=== PATIENT | female | born 1945 | race Hispanic/Latino ===

== ENCOUNTER → 2018-05-09 | Outpatient (CLI) | payer OTHER ==
--- NOTE | 2018-05-09 15:01 | RAD ---
EXAM DESCRIPTION: Knee,Left Complete CLINICAL HISTORY: PN IN UNSPECIFIED [id number] COMPARISON: None. TECHNIQUE: 3 views left FINDINGS: A left total knee arthroplasty is observed. Marked loss of medial joint space is observed. Sclerosis of the articular surfaces are observed. Medial femoral and tibial osteophyte formation is observed. Mild loss of lateral joint space is observed. 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 No joint effusion is seen. IMPRESSION: Degenerative changes are observed most pronounced the patellofemoral joint and medial joint compartments. Electronically signed by: Milind Martínez MD 05/09/2018 3:00 PM [facility]
--- NOTE | 2018-05-09 15:02 | RAD ---
EXAM DESCRIPTION: Knee,Right Complete CLINICAL HISTORY: PN IN UNSPECIFIED [id number] COMPARISON: None. TECHNIQUE: 3 views right. FINDINGS: Marked loss of medial joint space is observed. Sclerosis of the articular surfaces are observed. Medial tibial osteophyte formation is observed. Moderate patellofemoral joint arthritis is seen. IMPRESSION: Degenerative changes are observed most pronounced in the medial joint compartment and patellofemoral joints. Electronically signed by: Milind Martínez MD 05/09/2018 3:01 PM [facility]
== END ==
LOC: RAD 11:58
PROVIDERS: ATTEND Nurse Practitioner Family
DX: M25.569 Pain in unspecified knee (principal)

== ENCOUNTER 2019-06-15 09:21 | Emergency (ER) | payer MEDICARE ==
[2019-06-15] MEDS ORDERED: SODIUM CHLORIDE 0.9% (FLUSH) 10 ML SYG IV PRN (09:39)
[2019-06-15] MEDS ORDERED: SODIUM CHLORIDE 0.9% 1000ML 1,000 ML IVS ONE (09:40)
--- NOTE | 2019-06-15 09:41 | ED.PDOC ---
History of Present Illness - General Chief Complaint: GI Problem Stated Complaint: Intermittent N/V/D, exacerbated with food Time Seen by Provider: 06/15/19 09:39 Source: patient - History of Present Illness Initial Comments: 73 yo female with PMH of HTN, GERD who is bib daughter from home for cc of intermittent n/v/d. Ongoing now for about 2 weeks. First began after she was feeling constipated and ate some prunes to try to relieve it. Reports since then having approx 1-4 episodes of watery diarrhea per day and also having intermittent nausea with light/yellow colored emesis which occurs after eating anything "heavy." Also reports some burning sensation in her throat and reports crampy generalized abdominal pain only with the vomiting and diarrhea and none at rest. States sx's have improved the past few days while she was on a "light" diet but worsened again yesterday after eating some pancakes with a friend. Reports hx of GERD and was taking Zantac long-term until the past couple months when it was pulled from the shelves. Has not tried anything at home for relief. Currently denies any abd pain, fevers, chills, chest pain, dyspnea, body aches, urinary sx's. Does reports feeling generally weak past couple weeks since this has gone on. Denies any dark/black stools. Reports hx of cholecystectomy and many years ago but no other abdominal surgeries. Does not have a PCP in [facility], occasionally will see Dr. West in [place]. Allergies/Adverse Reactions: Allergies Acetaminophen [From Vicodin] Allergy (Verified 06/15/19 09:41) Hydrocodone [From Vicodin] Allergy (Verified 06/15/19 09:41) Propoxyphene [From Darvocet-N] Allergy (Verified 06/15/19 09:41) Home Medications: Ambulatory Orders Atenolol [Tenormin] 50 mg PO DAILY 06/15/19 Review of Systems - Review of Systems Review of Systems: 06/15/19 09:58 as per HPI All other Systems: Reviewed and Negative Past Medical History (General) - Patient Medical History Hx Stroke: No Hx of COPD: No Hx Congestive Heart Failure: No Hx Hypertension: Yes Hx Diabetes: No Hx Cancer: No Surgical History: cholecystectomy - Vaccination History Hx Tetanus, Diphtheria Vaccination: No Hx Influenza Vaccination: No Hx Pneumococcal Vaccination: No Immunizations Up to Date: No - Social History Hx Tobacco Use: Yes Hx Alcohol Use: No Hx Substance Use: No Hx Substance Use Treatment: No Hx Depression: No - Female History Patient is a Female of Child Bearing Age (10 -59 yrs old): No Patient : No Family Medical History - Family History Mother Family History: No Known Physical Exam - Physical Exam General Appearance: Alert, Comfortable, No apparent distress Eye Exam: bilateral normal Ears, Nose, Throat: hearing grossly normal, normal ENT inspection Neck: non-tender, full range of motion, supple, normal inspection Respiratory: chest non-tender, lungs clear, normal breath sounds, no respiratory distress Cardiovascular/Chest: normal peripheral pulses, regular rate, rhythm, no edema, no murmur Gastrointestinal/Abdominal: soft, no organomegaly, other - minimal LLQ & suprapubic ttp, bowel sounds diminished throughout Back Exam: normal inspection, no CVA tenderness Extremity: normal range of motion, non-tender, normal inspection, no pedal edema, no calf tenderness, normal capillary refill Neurologic: proposal director II-XII nml as tested, no motor/sensory deficits, alert, normal mood/affect, oriented x 3 Skin Exam: normal color, warm/dry Progress - Progress Progress: 06/15/19 10:00 N/V/D -ongoing x2 weeks, waxing/waning, worse postprandial, hx of GERD and off antacids -suspect 2/2 GERD/acute gastritis most likely, consider also gastroenteritis vs constipation vs diverticulitis vs UTI vs acute pancreatitis vs cholangitis vs gastroparesis vs other -obtain labwork, place PIV, 1 L NS bolus, Zofran & Protonix 06/15/19 10:51 -Labs surprisingly reveal WBC 29,300 with 82% segs and 3% bands, lactate is 1.0. K is 2.8 - will given KCl 60 mEq PO. Given marked leukocytosis, consider infectious vs sepsis without severe features vs ?occult malignancy vs other. Pt has never had a colonoscopy. Daughter reports she has lost maybe 10-15 lbs past couple months. Obtaining CT A/P with IV contrast to search for occult infectious source vs possible malignancy vs other. Also will check lactate and collect blood cx's. Pt remains stable, vitals wnl, reports feeling a little better with ED trx. 06/15/19 12:37 -CT A/P reveals long segmental inflammatory changes involving the sigmoid colon and rectum as well as a 3x3 cm area of perirectal gas and fluid concerning for possible contained perforation and/or abscess. No other acute findings noted. Suspect this is the source of her infection and leukocytosis. Discussed with patient and daughter and recommend transfer to higher LOC for surgical and/or GI consultation. Will initiate broad spectrum IV Abx with Zosyn. Pt remains stable, vitals remain wnl. -Spoke with Dr. Dejesus, hospitalist at [facility], regarding patient and concerning CT A/P findings. He is going to speak with the on-call surgeon there and call us back to notify if patient is accepted for transfer. 06/15/19 12:54 -Pt has been accepted for transfer by Dr. Dejesus to [facility]. Stable to go via ground EMS. Markel Rivas MD Billing #[id number] - Results/Orders Results/Orders: 06/15/19 09:39 Sodium Chloride 0.9% (Flush) [Saline Flush Syringe] 10 ml IV PRN PRN 06/15/19 10:42 Hold Metformin x 48Hrs [id number] 06/15/19 11:28 BLOOD CULTURE Stat 06/15/19 12:24 Piperacillin/Tazobactam [Zosyn] 4.5 gm Sodium Chloride 0.9% 100Ml [NS (NACL 0.9%) 100ml] 100 ml IVPB ONCE Laboratory Results - last 24 hr 06/15/19 06/15/19 06/15/19 10:00 10:00 11:07 WBC 29.6 H* RBC 4.04 L Hgb 11.7 L Hct 35.5 L MCV 88.0 MCH 28.9 MCHC 32.8 L RDW 13.3 Plt Count 441 H MPV 9.5 Absolute Neuts (auto) Not Reportable Absolute Lymphs (auto) Not Reportable Absolute Monos (auto) Not Reportable Absolute Eos (auto) Not Reportable Neutrophils % Not Reportable Neutrophils % (Manual) 83.0 H Lymphocytes % Not Reportable Lymphocytes % (Manual) 13.0 Monocytes % Not Reportable Monocytes % (Manual) 1.0 Eosinophils % Not Reportable Basophils % Not Reportable Band Neutrophils 3.0 H Sodium 136 Potassium 2.8 L Chloride 97 L Carbon Dioxide 26 Anion Gap 15.8 BUN 8 Creatinine 0.51 L BUN/Creatinine Ratio 15.7 Random Glucose 136 H Serum Osmolality 272.4 L Lactic Acid 1.0 Calcium 8.0 L Total Bilirubin 0.7 Direct Bilirubin 0.2 Indirect Bilirubin 0.5 AST 21 ALT 11 Alkaline Phosphatase 91 Serum Total Protein 6.9 Albumin 2.8 L Lipase 21 L Urine Color Urine Appearance Urine pH Ur Specific [place] Urine Protein Urine Glucose (UA) Urine Ketones Urine Blood Urine Nitrite Urine Bilirubin Urine Urobilinogen Ur Leukocyte Esterase Urine RBC Urine WBC Ur Epithelial Cells Urine Bacteria 06/15/19 11:22 WBC RBC Hgb Hct MCV MCH MCHC RDW Plt Count MPV Absolute Neuts (auto) Absolute Lymphs (auto) Absolute Monos (auto) Absolute Eos (auto) Neutrophils % Neutrophils % (Manual) Lymphocytes % Lymphocytes % (Manual) Monocytes % Monocytes % (Manual) Eosinophils % Basophils % Band Neutrophils Sodium Potassium Chloride Carbon Dioxide Anion Gap BUN Creatinine BUN/Creatinine Ratio Random Glucose Serum Osmolality Lactic Acid Calcium Total Bilirubin Direct Bilirubin Indirect Bilirubin AST ALT Alkaline Phosphatase Serum Total Protein Albumin Lipase Urine Color Yellow Urine Appearance Clear Urine pH 7.0 Ur Specific [place] <= 1.005 Urine Protein Negative Urine Glucose (UA) Negative Urine Ketones Negative Urine Blood Negative Urine Nitrite Negative Urine Bilirubin Negative Urine Urobilinogen 0.2 Ur Leukocyte Esterase Negative Urine RBC 0 Urine WBC 0 Ur Epithelial Cells 0-1 Urine Bacteria 0 Departure - Departure Clinical Impression: Proctocolitis with complication Time of Disposition: 12:55 Disposition: Transfer to Hospital Condition: Fair Departure Forms: ED Discharge - Pt. Copy, Patient Portal Self Enrollment Referrals: CINDY WEST [Primary Care Provider] - 1-2 Weeks Home Medications: Ambulatory Orders Atenolol [Tenormin] 50 mg PO DAILY 06/15/19 Transfer to Outside Facility - Transfer Information Decision to Transfer Date: 06/15/19 Decision to Transfer Time: 12:56 Reason for Transfer: specialized care not available - surgery, gastroenterology, possibly interventional radiology, possible ICU Accepting Provider:: Dr. Dejesus Accepting Facility: [facility]
[2019-06-15] MEDS ORDERED: PANTOPRAZOLE SODIUM IV 40 MG VIAL IV ONE (09:51)
[2019-06-15] MEDS ORDERED: ONDANSETRON INJ 4 MG/2 ML VIAL IV ONE (09:52)
--- NOTE | 2019-06-15 10:26 | RAD ---
EXAM DESCRIPTION: Abdomen 1 View CLINICAL HISTORY: nausea, vomiting, diarrhea, hx of constipation COMPARISON: None. TECHNIQUE: AP supine abdomen FINDINGS: Surgical clips are seen in the right upper quadrant. The bowel gas pattern is unremarkable. No pathologic calcifications are observed. Phleboliths are seen in the pelvis. No organomegaly is detected. IMPRESSION: Unremarkable abdomen. Electronically signed by: Milind Martínez MD 06/15/2019 10:24 AM [facility]
[2019-06-15] MEDS ORDERED: POTASSIUM CHLORIDE 20 MEQ TAB PO ONE (10:41)
--- NOTE | 2019-06-15 12:16 | CT ---
EXAM DESCRIPTION: Abdomen/Pelvis w/Contrast CLINICAL HISTORY: 73 years Female, n/v/d, markedly elevated WBC, LLQ tenderness TECHNIQUE: This exam was performed according to our departmental dose-optimization program, which includes automated exposure control, adjustment of the mA and/or kV according to patient size and/or use of iterative reconstruction technique. COMPARISON: None at time of initial interpretation. FINDINGS: Bibasilar volume loss. Hepatic steatosis. No suspicious hepatic lesion. No biliary dilatation. Cholecystectomy. Portal vein is patent. The spleen, pancreas and adrenal glands are unremarkable. Symmetric renal parenchymal enhancement. No hydronephrosis. No urolithiasis. The bladder is unremarkable. Long segmental inflammatory changes involving the sigmoid colon and rectum. There is an adjacent perirectal gas and fluid collection measuring 2.8 x 3.2 cm series 2 image 76. No evidence of bowel obstruction. No findings to suggest appendicitis. No adenopathy. No free air. Normal caliber abdominal aorta. Mild atherosclerotic disease. No acute or suspicious osseous abnormality. Scattered degenerative changes present. IMPRESSION: Acute, complicated proctocolitis, with long segmental inflammatory changes involving the sigmoid colon and rectum. There is a perirectal gas and fluid collection compatible with a contained perforation and/or abscess. Electronically signed by: Jeffrey Parr MD 06/15/2019 12:14 PM [employer]
[2019-06-15] MEDS ORDERED: PIPERACILLIN/TAZOBACTAM 4.5 GM in SODIUM CHLORIDE 0.9% 100ML 100 ML IVPB ONE (12:24)
[2019-06-15] MEDS ORDERED: SODIUM CHLORIDE 0.9% 100ML 100 ML IVPB ONE (12:30)
[2019-06-15] MEDS ORDERED: PIPERACILLIN/TAZOBACTAM 2.25 GM VIAL IVPB ONE (12:30)
[2019-06-15 13:25] VITALS: BP 147/51; TEMP 97.1; O2SAT 94
== END 2019-06-15 13:25 | disposition short-term general hospital (02) ==
LOC: ER 09:21
DX: K51.319 Ulcerative (chronic) rectosigmoiditis with unspecified complications (principal); K21.9 Gastro-esophageal reflux disease without esophagitis; I10 Essential (primary) hypertension; Z79.899 Other long term (current) drug therapy; Z90.49 Acquired absence of other specified parts of digestive tract; Z87.891 Personal history of nicotine dependence
CPT/HCPCS: 36415; 74018; 74177; 80048; 80076; 81001; 83605; 83690; 85025; 87040; J2405; J2543; J7030; J7050

== ENCOUNTER 2019-07-10 07:27 | Emergency (ER) | payer SELFPAY ==
[2019-07-10] MEDS ORDERED: ONDANSETRON ODT 8 MG TAB SL ONE (08:08)
--- NOTE | 2019-07-10 08:08 | ED.PDOC ---
History of Present Illness - General Chief Complaint: Respiratory Problem Time Seen by Provider: 07/10/19 08:03 Source: patient, family Exam Limitations: no limitations - History of Present Illness Initial Comments: PRODUCTIVE COUGH, NAUSEA X 1 DAY. PT HAS IMPROVED FROM A TREATMENT COURSE FOR PROCTOCOLITIS, FOR WHICH SHE HAS BEEN SEEN AND TREATED IN [facility]. JUST FINISHED FINAL COURSE OF MERREM. HER GI IFXN IS FEELING BETTER. YESTERDAY, STARTED HAVING COUGH WITH PHLEGM AND NAUSEA, SO DAUGHTER IS WORRIED ABOUT A SEPARATE CHEST IFXN. PT REQUESTS MED FOR NAUSEA. Severity: moderate Improving Factors: nothing Worsening Factors: nothing Associated Symptoms: cough, loss of appetite, nausea/vomiting Allergies/Adverse Reactions: Allergies Acetaminophen [From Vicodin] Allergy (Verified 06/15/19 09:41) Hydrocodone [From Vicodin] Allergy (Verified 06/15/19 09:41) Propoxyphene [From Darvocet-N] Allergy (Verified 06/15/19 09:41) Home Medications: Ambulatory Orders Atenolol [Tenormin] 50 mg PO BEDTIME 06/15/19 Benzonatate Perles [Tessalon Perles] 100 mg PO TID PRN #30 cap 07/10/19 Dicyclomine HCl [Dicyclomine Hydrochloride] 10 mg PO QID PRN 07/10/19 Lisinopril & Hydrochlorothiazi [Lisinopril/Hydrochlorothi 20-25 mg] 1 tab PO DA TANGELA 07/10/19 Ondansetron Odt [Zofran ODT] 4 mg PO Q8H PRN #15 tab 07/10/19 Pantoprazole Tablet [Protonix] 40 mg PO ACBK 07/10/19 Review of Systems - Review of Systems Constitutional: States: fever. Denies: chills EENTM: Denies: ear pain, nose congestion, throat pain Respiratory: States: cough. Denies: short of breath, wheezing Cardiology: Denies: chest pain, palpitations Gastrointestinal/Abdominal: States: nausea. Denies: abdominal pain Genitourinary: Denies: discharge, dysuria, frequency Musculoskeletal: Denies: back pain, neck pain Skin: Denies: change in hair/nails, rash Neurological: Denies: headache, paresthesia Endocrine: Denies: increased thirst, increased urine Hematologic/Lymphatic: Denies: easy bleeding, easy bruising All other Systems: Reviewed and Negative Past Medical History (General) - Patient Medical History Hx Stroke: No Hx of COPD: No Hx Congestive Heart Failure: No Hx Hypertension: Yes Hx Diabetes: No Hx Cancer: No Surgical History: cholecystectomy, other - Vaccination History Hx Tetanus, Diphtheria Vaccination: No Hx Influenza Vaccination: No Hx Pneumococcal Vaccination: No - Social History Hx Tobacco Use: Yes Hx Alcohol Use: No Hx Substance Use: No Hx Substance Use Treatment: No Hx Depression: No - Female History Patient : No Family Medical History - Family History Mother Family History: No Known Physical Exam - Physical Exam General Appearance: Alert, Well Nourished Eye Exam: bilateral normal Ears, Nose, Throat: hearing grossly normal, normal ENT inspection, normal pharynx Neck: non-tender, full range of motion, supple, normal inspection Respiratory: chest non-tender, lungs clear, normal breath sounds, no respiratory distress, no accessory muscle use Cardiovascular/Chest: normal peripheral pulses, regular rate, rhythm, no murmur Peripheral Pulses: radial,right: 1+, radial,left: 1+ Gastrointestinal/Abdominal: normal bowel sounds, non tender, soft, no organomegaly, no pulsatile mass Back Exam: normal inspection, no CVA tenderness Extremity: normal inspection, no pedal edema, no calf tenderness Neurologic: alert, normal mood/affect Skin Exam: normal color, warm/dry Lymphatic: no adenopathy Progress - Results/Orders Results/Orders: CBC UNREMARKABLE. WBC WNL. CMP HYPOKALEMIA - GAVE 20 MEQ PO. FEVER - LOW GRADE. TYLENOL PRN. COUGH - RX TESSALON PRN. NAUSEA - RX ZOFRAN PRN. CXR AND CLINICAL - VIRAL BRONCHITIS. SUPPORTIVE CARE. PT IS FINISHING HER MERREM TX TODAY FOR RECENT PROCTOCOLITIS IFXN. HER CLINICAL COURSE DOES NOT WARRANT ANOTHER COURSE OF ABX, GIVEN THAT MERREM IS TX FOR PNE IN ADDITION TO GI IFXNS; TODAY SHE HAS A VIRAL BRONCHITIS, NOT PNE; AND SHE IS FINISHING A STRONG COURSE OF MERREM TODAY AND I DO NOT WANT TO RISK OVERLOADING HER WITH PROLONGED ABX AND CAUSING A C.DIFF IFXN. SAFE FOR DC TO HOME WITH DAUGHTER. Departure - Departure Clinical Impression: Acute viral bronchitis, Cough, Fever, Nausea & vomiting, Hypokalemia Disposition: Discharge to Home or Self Care Condition: Good Departure Forms: ED Discharge - Pt. Copy, Patient Portal Self Enrollment Instructions: Acute Bronchitis, Adult (DC) Diet: bland diet Activity: increase activity as tolerated Referrals: ALIRIO OWUSU IV, [facility] [Primary Care Provider] - 1-2 Weeks Prescriptions: Benzonatate Perles [Tessalon Perles] 100 mg PO TID PRN #30 cap PRN Reason: Cough Ondansetron Odt [Zofran ODT] 4 mg PO Q8H PRN #15 tab PRN Reason: Nausea Home Medications: Ambulatory Orders Atenolol [Tenormin] 50 mg PO BEDTIME 06/15/19 Benzonatate Perles [Tessalon Perles] 100 mg PO TID PRN #30 cap 07/10/19 Dicyclomine HCl [Dicyclomine Hydrochloride] 10 mg PO QID PRN 07/10/19 Lisinopril & Hydrochlorothiazi [Lisinopril/Hydrochlorothi 20-25 mg] 1 tab PO DAILY 07/10/19 Ondansetron Odt [Zofran ODT] 4 mg PO Q8H PRN #15 tab 07/10/19 Pantoprazole Tablet [Protonix] 40 mg PO ACBK 07/10/19 Additional Instructions: Drink plenty of fluids and get plenty of rest until you are feeling better.
[2019-07-10] MEDS ORDERED: ACETAMINOPHEN 500 MG TAB PO ONE (08:42)
[2019-07-10] MEDS ORDERED: SODIUM CHLORIDE 0.9% 50ML 50 ML ONE (08:48)
[2019-07-10] MEDS ORDERED: POTASSIUM CHLORIDE 20 MEQ TAB PO ONE (08:54)
--- NOTE | 2019-07-10 08:56 | RAD ---
EXAM DESCRIPTION: Chest,1 View CLINICAL HISTORY: 73 years Female, COUGH PRODUCTIVE OF PHLEGM X 1 DAY. COMPARISON: None. TECHNIQUE: Single view radiograph of the chest. IMPRESSION: Enlarged cardiac silhouette. Partially calcified aorta. Nonspecific moderate bilateral perihilar interstitial prominence which can be seen with vascular congestion or bronchitis. Basilar interstitial prominence which can be seen with early/mild pulmonary edema. No pleural effusion or pneumothorax. Thoracic spondylosis. Electronically signed by: Kurtis Chase MD 07/10/2019 8:55 AM [facility]
[2019-07-10 10:39] VITALS: BP 109/56; TEMP 99.5; O2SAT 92
== END 2019-07-10 10:45 | disposition home or self-care (01) ==
LOC: ER 07:27
DX: J20.8 Acute bronchitis due to other specified organisms (principal); R11.2 Nausea with vomiting, unspecified; E87.6 Hypokalemia; I10 Essential (primary) hypertension; Z87.891 Personal history of nicotine dependence; Z90.49 Acquired absence of other specified parts of digestive tract; Z79.899 Other long term (current) drug therapy; Z88.6 Allergy status to analgesic agent; Z88.5 Allergy status to narcotic agent; Z88.8 Allergy status to other drugs, medicaments and biological substances